=== PATIENT | female | born 1960 | race American Indian/Alaskan Native ===

== ENCOUNTER 2016-10-19 07:06 | Emergency (ER) | payer SELFPAY ==
[2016-10-19 07:20] VITALS: BP 160/105
[2016-10-19] MEDS ORDERED: XYLOCAINE 1% MPF 5 mL INFILTRATI ONE (07:31)
[2016-10-19] MEDS ORDERED: ZITHROMAX PO ONE (07:31)
[2016-10-19] MEDS ORDERED: ROCEPHIN IM ONE (07:31)
--- NOTE | 2016-10-19 07:43 | Emergency Department Report ---
ED Female HPI - General Chief complaint: Urogenital-Female Stated complaint: VAGINAL ITCHING Time Seen by Provider: 10/19/16 07:24 Source: patient Mode of arrival: Ambulatory Limitations: No Limitations - History of Present Illness MD Complaint: possible STD Onset/Timin -: days(s) Location: other (no symptoms) Radiation: non-radiating Severity scale (0 -10): 1 Are you Now?: No Last Menstrual Period: 10/16/06 (post menopausal) EDC: 07/23/07 - Related Data Sexually active: Yes (post menopausal ) Home Medications Medication Instructions Recorded Confirmed Last Taken Aspirin [Aspirin BABY CHEW TAB] 81 mg PO DAILY 10/17/14 10/17/14 10/17/14 Atorvastatin Calcium 10 mg PO DAILY 10/17/14 10/17/14 10/17/14 Furosemide [Lasix] 40 mg PO QDAY 10/17/14 10/17/14 10/17/14 Lisinopril [Zestril TAB] 20 mg PO BID 10/17/14 10/17/14 10/17/14 Metoprolol [Lopressor TAB] 50 mg PO TID 10/17/14 10/17/14 10/17/14 Previous Rx's Medication Instructions Recorded Last Taken Type metroNIDAZOLE [Flagyl] 500 mg PO Q12HR #14 tab 10/19/16 Unknown Rx Allergies Allergy/AdvReac Type Severity Reaction Status Date / Time Penicillins Allergy Rash Verified 10/17/14 12:06 ED Review of Systems ROS: Stated complaint: VAGINAL ITCHING Other details as noted in HPI Constitutional: denies: chills, fever Eyes: denies: eye pain, eye discharge, vision change ENT: denies: ear pain, throat pain Respiratory: denies: cough, shortness of breath, wheezing Cardiovascular: denies: chest pain, palpitations Endocrine: no symptoms reported Gastrointestinal: denies: abdominal pain, nausea, diarrhea Genitourinary: denies: urgency, dysuria, discharge Musculoskeletal: denies: back pain, joint swelling, arthralgia Skin: denies: rash, lesions Neurological: denies: headache, weakness, paresthesias Psychiatric: denies: anxiety, depression Hematological/Lymphatic: denies: easy bleeding, easy bruising ED Past Medical Hx - Past Medical History Previous Medical History?: Yes Hx Hypertension: Yes Hx Heart Attack/AMI: Yes - Surgical History Past Surgical History?: Yes Hx Coronary Stent: Yes Additional Surgical History: ovarian cyst removal - Social History Smoking Status: Never Smoker Substance Use Type: Alcohol, Marijuana, Prescribed - Medications Home Medications: Home Medications Medication Instructions Recorded Confirmed Last Taken Type Aspirin [Aspirin BABY CHEW TAB] 81 mg PO DAILY 10/17/14 10/17/14 10/17/14 History Atorvastatin Calcium 10 mg PO DAILY 10/17/14 10/17/14 10/17/14 History Furosemide [Lasix] 40 mg PO QDAY 10/17/14 10/17/14 10/17/14 History Lisinopril [Zestril TAB] 20 mg PO BID 10/17/14 10/17/14 10/17/14 History Metoprolol [Lopressor TAB] 50 mg PO TID 10/17/14 10/17/14 10/17/14 History metroNIDAZOLE [Flagyl] 500 mg PO Q12HR #14 tab 10/19/16 Unknown Rx ED Physical Exam - General Limitations: No Limitations General appearance: alert, in no apparent distress - Head Head exam: Present: atraumatic, normocephalic - Eye Eye exam: Present: normal appearance - ENT ENT exam: Present: mucous membranes moist - Neck Neck exam: Present: normal inspection - Respiratory Respiratory exam: Present: normal lung sounds bilaterally. Absent: respiratory distress - Cardiovascular Cardiovascular Exam: Present: regular rate, normal rhythm. Absent: systolic murmur, diastolic murmur, rubs, gallop - GI/Abdominal GI/Abdominal exam: Present: soft, normal bowel sounds. Absent: tenderness, guarding, rebound, rigid, bruit - Rectal Rectal exam: Present: deferred - External exam: Present: other (pt deferrs to [facility] ) - Extremities Exam Extremities exam: Present: normal inspection - Back Exam Back exam: Present: normal inspection - Neurological Exam Neurological exam: Present: alert, oriented X3 - Psychiatric Psychiatric exam: Present: normal affect, normal mood - Skin Skin exam: Present: warm, dry, intact, normal color. Absent: rash ED Course Vital Signs 10/19/16 07:15 Temperature 98.5 F Pulse Rate 79 Respiratory 20 Rate Blood Pressure 160/105 O2 Sat by Pulse 100 Oximetry ED Medical Decision Making - Medical Decision Making pt is a 55 y/o aaf who persent requesting tx for std exposure pt refuses , wet prep, GC/Ch Culture, UA, s/p menopausal x 10 yrs advises , denies symptoms howeever request prophylactic treat since unprotected sex was 3 days ago , will follow up with [facility] for Vaginal exam. pt counseled on protect sex, pt verabalized agreement and understanding with need to follow up with [facility], PCP , or health department for HIV and STD Screening. Critical care attestation.: If time is entered above; I have spent that time in minutes in the direct care of this critically ill patient, excluding procedure time. ED Disposition Clinical Impression: Exposure to STD Disposition: DC-01 TO HOME OR SELFCARE Is pt being admited?: No Does the pt Need Aspirin: No Condition: Good Instructions: Sexually Transmitted Diseases (ED) Prescriptions: metroNIDAZOLE [Flagyl] 500 mg PO Q12HR #14 tab Referrals: PRIMARY CARE, [Primary Care Provider] - 3-5 Days Forms: Work/School Release Form(ED) Time of Disposition: 07:55
== END 2016-10-19 08:08 | disposition home or self-care (01) ==
LOC: ED 07:06
DX: Z20.2 Contact with and (suspected) exposure to infections with a predominantly sexual mode of transmission (principal); I10 Essential (primary) hypertension; I25.2 Old myocardial infarction; F12.90 Cannabis use, unspecified, uncomplicated; Z88.0 Allergy status to penicillin; Z79.82 Long term (current) use of aspirin
CPT/HCPCS: 96372; 99282; J0696